=== PATIENT | male | born 1970 | race Caucasian/White ===

== ENCOUNTER 2017-12-11 21:44 | Emergency (ER) | payer BC ==
[2017-12-11 22:58] VITALS: BP 114/71
== END 2017-12-11 22:58 | disposition home or self-care (01) ==
LOC: ED 21:44
DX: S01.91XD Laceration without foreign body of unspecified part of head, subsequent encounter (principal); X58.XXXD Exposure to other specified factors, subsequent encounter; Z48.02 Encounter for removal of sutures

== ENCOUNTER 2017-12-19 22:27 | Emergency (ER) | payer BC ==
[~2017-12-19] VITALS: Ht 172.7 cm; Wt 81.2 kg
[2017-12-19 22:52] VITALS: Ht 172.7 cm; Wt 81.2 kg
[2017-12-19 23:17] VITALS: BP 127/98
== END 2017-12-19 23:17 | disposition home or self-care (01) ==
LOC: ED 22:27
DX: S01.01XD Laceration without foreign body of scalp, subsequent encounter (principal); X58.XXXD Exposure to other specified factors, subsequent encounter